=== PATIENT | female | born 1985 | race Caucasian/White ===

== ENCOUNTER → 2021-04-15 | Outpatient (CLI) | payer MEDICAID | LOC: DIA.ED 08:40 | DX: O24.419 Gestational diabetes mellitus in pregnancy, unspecified control (principal) | CPT/HCPCS: G0108 ==

== ENCOUNTER → 2021-05-13 | Outpatient (CLI) | payer MEDICAID | LOC: DIA.ED 07:47 → DIA.EDTELE 15:00 → DIA.ED 15:04 | DX: O24.419 Gestational diabetes mellitus in pregnancy, unspecified control (principal) | CPT/HCPCS: G0108 ==

== ENCOUNTER 2021-05-28 08:45 | Inpatient (IN) | payer MEDICAID ==
[2021-05-28] VITALS (19 sets, daily range): BP systolic 116–149; BP diastolic 63–98; PULSE 85–113; TEMP 97.4–98.4
[~2021-05-28] VITALS: Ht 157.5 cm; Wt 118.0 kg
--- NOTE | 2021-05-28 08:55 | NUR ---
PATIENT AMBULATORY TO LDR3 WITH SPOUSE. CHANGED INTO GOWN. EFM AND TOCO MONITOR PLACED AND EXPLAINED. VSS. PATIENT STATES "WATER BROKE AROUND 0800 THIS MORNING AND HAS BEEN GREEN". PATIENT DENIES ANY REGULAR CONTRACTIONS, VAGINAL BLEEDING OR DECREASED MOVEMENT. PLAN OF CARE DISCUSSED. 0900 - SVE /-2. AMIO TEST POSITIVE WITH GREEN MECONIUM FLUID NOTED. ASSESSMENT COMPLETED AND CONSENT SIGNED. PATIENT PREPPED FOR C SECTION. IV PLACED AND LR STARTED ORDERED. KYLE WHITFIELD AT BEDSIDE AND MD OLIVER AT BEDSIDE DISCUSSING PLAN OF CARE. PRE OP MEDS GIVEN ORDERED. 0954 - PATIENT OFF MONITOR TO OR.
[2021-05-28 09:25] LABS: BASO % 0.2 % (0.0-2.0); EOS # 0.2 K/mm3 (0.0-0.7); EOS % 1.1 % (0.0-4.0); GRAN # 9.1 K/mm3 (1.4-6.5); GRAN % 69.1 % (42.2-75.2); HEMOGLOBIN 11.5 g/dl (12.5-16.0); LYMPH # 2.7 K/mm3 (1.2-3.4); LYMPH % 20.8 % (20.0-51.0); MEAN CELL VOLUME 87 fl (80.0-100.0); MEAN CORPUSCULAR HEMOGLOBIN 30 pg (27-31); MEAN CORPUSCULAR HGB CONC 34 g/dl (33.0-37.0); MEAN PLATELET VOLUME 9.2 fl (7.4-10.4); MONO % 7.7 % (1.7-9.3); PLATELET COUNT 307 K/mm3 (130-400); RED BLOOD COUNT 3.85 M/mm3 (4.10-5.30); REDCELL DISTRIBUTION WIDTH-CV 13.7 % (11.5-14.5)
[2021-05-28 09:27] LABS: HEMATOCRIT 33.5 % (37.0-47.0)
[2021-05-28] MEDS ORDERED: ZOLOFT 100MG100 MG PO (09:29)
[2021-05-28] MEDS ORDERED: PRENATAL TABLET PO (09:29)
[2021-05-28 11:33] LABS: TRICYCLIC ANTIDEPRESS URINE NEGATIVE
[2021-05-29] VITALS: BP 144/80; PULSE 98; TEMP 97.9
[2021-05-29 07:45] VITALS: BP 127/62; PULSE 100; TEMP 97.9
--- NOTE | 2021-05-29 10:16 | NUR ---
Initial visit; Patient thanked House Mother for offering congratulations and God's blessings for the of her son. House Mother thanked patient for choosing our hospital.
[2021-05-29 11:40] VITALS: BP 138/66; PULSE 99; TEMP 98.2
[2021-05-29 16:30] VITALS: BP 142/82; PULSE 100; TEMP 98
[2021-05-29 19:00] VITALS: BP 122/66; PULSE 100; TEMP 97.8
[2021-05-30 07:20] VITALS: BP 132/82; PULSE 110; TEMP 98.1
[2021-05-30] MEDS ORDERED: IBU800 M1 PO (10:13)
[2021-05-30] MEDS ORDERED: PERCOCET 325 MG1 TA3 PO (10:14)
[2021-05-30 17:20] VITALS: BP 132/86; PULSE 106; TEMP 98.6
[2021-05-30 20:10] VITALS: BP 131/81; PULSE 108; TEMP 97.5
== END 2021-05-31 05:50 | disposition home or self-care (01) | DRG 788 ==
LOC: LDRO 08:45 → OB 09:00 → LDR 09:00 → OB 11:30
PROVIDERS: ADMIT Obstetrics & Gynecology
PROC: 10D00Z1 Extraction of Products of Conception, Low, Open Approach (ICD-10-PCS; principal; 2021-05-28)
DX: O34.211 Maternal care for low transverse scar from previous cesarean delivery (principal); O24.420 Gestational diabetes mellitus in childbirth, diet controlled; O99.214 Obesity complicating childbirth; O77.0 Labor and delivery complicated by meconium in amniotic fluid; O99.344 Other mental disorders complicating childbirth; F41.9 Anxiety disorder, unspecified; F32.A Depression, unspecified; Z3A.38 38 weeks gestation of pregnancy; Z37.0 Single live birth
CPT/HCPCS: J0690; J1885; J2405; J2590; J7120

== ENCOUNTER 2021-10-17 20:40 | Emergency (ER) | payer MEDICAID ==
[~2021-10-17] VITALS: Ht 157.5 cm; Wt 122.3 kg
[~2021-10-17 20:40] MED LIST: IBU800 M1 PO; PERCOCET 325 MG1 TA3 PO; PRENATAL TABLET PO; ZOLOFT 100MG100 MG PO
[2021-10-17 20:57] VITALS: TEMP 99.5
[2021-10-17 22:24] LABS: BASO % 0.3 % (0.0-2.0); EOS # 0.3 K/mm3 (0.0-0.7); EOS % 1.7 % (0.0-4.0); GRAN # 9.6 K/mm3 (1.4-6.5); HEMATOCRIT 39.8 % (37.0-47.0); HEMOGLOBIN 13.9 g/dl (12.5-16.0); LYMPH # 3.7 K/mm3 (1.2-3.4); LYMPH % 25.7 % (20.0-51.0); MEAN CELL VOLUME 88 fl (80.0-100.0); MEAN CORPUSCULAR HEMOGLOBIN 31 pg (27-31); MEAN CORPUSCULAR HGB CONC 35 g/dl (33.0-37.0); MEAN PLATELET VOLUME 9.1 fl (7.4-10.4); MONO # 0.9 K/mm3 (0.1-0.6); MONO % 5.9 % (1.7-9.3); PLATELET COUNT 309 K/mm3 (130-400); RED BLOOD COUNT 4.54 M/mm3 (4.10-5.30)
[2021-10-17 22:49] LABS: ALANINE AMINOTRANSFERASE 29 U/L (0-55); ALBUMIN 3.8 gm/dL (3.5-5.0); ALKALINE PHOSPHATASE 87 U/L (40-150); ANION GAP 11 mmol/L (7-16); AST,SGOT 42 U/L (5-34); BILIRUBIN,TOTAL 0.3 mg/dL (0.2-1.2); BLOOD UREA NITROGEN 8 mg/dL (7-19); CALCIUM 9.3 mg/dL (8.4-10.2); CARBON DIOXIDE 22 mmol/L (22-29); CHLORIDE 104 mmol/L (98-107); CREATININE, serum 0.79 mg/dL (0.57-1.11); GLUCOSE 93 mg/dL (70-99); POTASSIUM 4.3 mmol/L (3.5-4.5); SODIUM 137 mmol/L (136-145); TOTAL PROTEIN 8.5 gm/dL (6.2-8.1)
[2021-10-17 23:05] LABS: TROPONIN-I < 0.010 ng/mL (0.00-0.033)
[2021-10-17] MEDS ORDERED: TESSALON P100 MG/CAP PO (23:33)
[2021-10-18] VITALS: BP 152/78; PULSE 76
== END 2021-10-18 03:38 | disposition home or self-care (01) ==
LOC: COL.ER 20:40
PROVIDERS: Emergency Medicine
DX: J40 Bronchitis, not specified as acute or chronic (principal); Z20.822 Contact with and (suspected) exposure to COVID-19; Z28.310 Unvaccinated for COVID-19

== ENCOUNTER 2022-07-21 13:53 | Inpatient (IN) | payer MEDICAID ==
[~2022-07-21] VITALS: Ht 157.5 cm; Wt 117.0 kg
[~2022-07-21 13:53] MED LIST changes: +TESSALON P100 MG/CAP PO
[2022-08-25] VITALS (14 sets, daily range): BP systolic 116–150; BP diastolic 69–82; PULSE 60–99; TEMP 98.1–99
[2022-08-25] MEDS ORDERED: ZOLOFT 100MG100 MG PO (09:36)
--- NOTE | 2022-08-25 12:05 | NUR ---
pt brought to room from pacu. pt drowsy but responds to verbal commands, at bedside. x5 lap sites w bandaids are cdi. elodia drain in place w minimal serosangenous drainage. vss.
--- NOTE | 2022-08-25 17:00 | NUR ---
pt reports having nausea but tolerable pain. zofran given. pt tolerating clear liquid diet. up to bathroom without difficulty. no other needs at this time.
--- NOTE | 2022-08-25 20:00 | NUR ---
Patient A/Ox4, head to toe assessment done, see shift assessment, rates pain at 3/10, denies the need for pain meds, with 5 lap sites CDI, KATIE drain draining serosanguinous fluid, SCD's on, denies further needs, call light and personal items within reach, will continue to monitor.
[2022-08-26 03:39] VITALS: BP 151/83; PULSE 72; TEMP 98.4
[2022-08-26 07:49] VITALS: BP 151/84; PULSE 57; TEMP 97.9
[2022-08-26 09:00] VITALS: BP_SYST 151
--- NOTE | 2022-08-26 09:38 | NUR ---
SW met with the patient to discuss discharge plan. The patient lives in [place] with her , Loc (ph#[phone]), and their family. She reports independence with ADLs and does not have any DME. The patient's primary care provider is Love Donaldson and she obtains her medications from [facility]. The patient does not have a DPOA-HC and she was not interested in completing one at this time. The patient plans to return home with her family upon discharge. No additional needs at this time. *Discharge plan: home with family*
--- NOTE | 2022-08-26 11:11 | NUR ---
Initial visit: Warp Knit Operator stopped by room on rounds. Pt was resting and content. Pt has no needs right now. Warp Knit Operator will follow up as needed.
[2022-08-26] MEDS ORDERED: ZOFRAN 4MG T4 MG/TAB PO (12:20)
[2022-08-26] MEDS ORDERED: NORCO 325 MG-51 TAB PO (12:20)
[2022-08-26 12:34] VITALS: BP 128/64; PULSE 86; TEMP 97.8
[2022-08-26 13:00] VITALS: BP_SYST 128
== END 2022-08-26 13:25 | disposition home or self-care (01) | DRG 621 ==
LOC: SURG 08-04 08:30 → INPTSU 08-25 07:46 → SURG 08-25 08:30
PROVIDERS: ADMIT Surgery
PROC: 8E0W4CZ Robotic Assisted Procedure of Trunk Region, Percutaneous Endoscopic Approach (ICD-10-PCS; 2022-08-25)
PROC: 0DB64Z3 Excision of Stomach, Percutaneous Endoscopic Approach, Vertical (ICD-10-PCS; principal; 2022-08-25 09:30)
DX: E66.01 Morbid (severe) obesity due to excess calories (principal); Z68.42 Body mass index [BMI] 45.0-49.9, adult; F32.A Depression, unspecified; Z87.891 Personal history of nicotine dependence
CPT/HCPCS: J1100; J1170; J1200; J1885; J2405; J2550; J2704; J2765; J3010; J7120